=== PATIENT | female | born 1985 | race African-American/Black ===

== ENCOUNTER 2025-03-20 17:14 | Emergency (ER) | payer MEDICAID ==
[~2025-03-20] VITALS: Ht 177.8 cm; Wt 85.0 kg
[2025-03-20 17:19] VITALS: TEMP 36.7; O2SAT 100
[2025-03-20] MEDS ORDERED: ALPRAZOLAM 0.5 MG TABLET PO ONE (17:30)
[2025-03-20 17:52] LABS: HEMATOCRIT 38.8 % (36.0-48.0); HEMOGLOBIN 12.8 g/dL (12.0-16.0); MEAN CORPUSCULAR HEMOGLOBIN 32.4 pg (28.0-32.0); MEAN CORPUSCULAR HGB CONC 32.8 g/dL (31.0-37.0); MEAN CORPUSCULAR VOLUME 98.8 fL (81.0-99.0); PLATELET 277 x1000/uL (130-400); RED BLOOD CELL COUNT 3.93 mill/uL (4.2-5.4); RED CELL DISTRIBUTION WIDTH 13.9 % (11.6-14.6); WHITE BLOOD COUNT 13.1 x1000/uL (4.5-11.0)
[2025-03-20] MEDS: ALPRAZOLAM 0.25 MG TABLET PO NR (18:01)
[2025-03-20 18:02] LABS: CHLORIDE 101 mEq/L (98-107); POTASSIUM 3.6 mEq/L (3.5-5.1); SODIUM 136 mEq/L (136-145)
[2025-03-20 18:03] LABS: CARBON DIOXIDE 18 mEq/L (21-32)
[2025-03-20 18:04] LABS: CALCIUM 9.3 mg/dL (8.7-10.4)
[2025-03-20 18:05] LABS: HCG SCREEN NEGATIVE
[2025-03-20 18:09] LABS: CREATININE 1.3 mg/dL (0.6-1.0); GLUCOSE 123 mg/dL (70-105); UREA NITROGEN BLOOD 6 mg/dL (9-23)
[2025-03-20 18:17] LABS: TROPONIN I HIGH SENSITIVITY < 4 ng/L (3.0-34)
[2025-03-20] MEDS: ONDANSETRON 4MG ODT PO ONE (18:29)
[2025-03-20 20:04] VITALS: TEMP 98
[2025-03-20] MEDS: ACETAMINOPHEN 500MG TABLET PO ONE (20:04)
[2025-03-20 20:24] VITALS: BP 140/79; PULSE 98; RESP 12; O2SAT 100
== END 2025-03-20 20:27 | disposition home or self-care (01) ==
LOC: ER 17:14
DX: F41.9 Anxiety disorder, unspecified (principal); M79.7 Fibromyalgia; Z79.899 Other long term (current) drug therapy; Z88.6 Allergy status to analgesic agent
CPT/HCPCS: 99284; 80048; 84703; 85027; 84484; 36415; 93005; Q0162